=== PATIENT | male | born 1940 | race Caucasian/White ===

== ENCOUNTER 2018-03-07 13:07 | Outpatient (CLI) | payer MEDICARE, BC ==
--- NOTE | 2018-03-07 14:38 | MRI ---
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 The patient is having pain in the neck for 3 months with l eft foot tingling and numbness. TECHNIQUE: Multiplanar, multisequence MR images were obtained of the cervical spine without contrast. FINDINGS: Bone marrow signal intensity appears within normal limits. The visualized posterior fossa is unremark able. There is some mucosal thickening within the inferior aspect of the right maxillary sinus. At C2-C3, there is no appreciable central canal or neural foraminal narrowing. At C3-4, there is uncovertebral hypertrophy and facet joint degenerative change inducing moderate rig ht and mild left neural foraminal narrowing. There is a mild broad based disc bulge at this level. At C4-5, there is a broad based disc bulge with uncovertebral hypertrophy. This is greater on the lef t inducing moderate left neural foraminal narrowing. At C5-6, there is a right foraminal disc protrusion causing moderate right neural foraminal narrowing . There is uncovertebral hypertrophy and facet degenerative change inducing mild left neural foramina l narrowing. At C6-7, there is uncovertebral hypertrophy without appreciable central canal or neural foraminal rosie rowing. At C7-T1, there is no appreciable central canal or neural foraminal narrowing. IMPRESSION: Mild to moderate multilevel spondylosis of the cervical spine with multilevel neural foraminal narrow ing as dictated above. POS: SHAILA
--- NOTE | 2018-03-07 15:14 | MRI ---
NONCONTRAST ENHANCED MRI IMAGES OF THE LUMBAR SPINE: History: Back pain, tingling, numbness. Technique: Multiplanar, multisequence noncontrast enhanced MRI images of the lumbar spine obtained. M 51.36 FINDINGS: For the purposes of this dictation, the last freely mobile vertebral body will be considered to be th e L5 vertebral body. All other vertebral bodies are numbered according to this. T12-L1, L1-2: Unremarkable. L2-3: There is some mild disc desiccation. Mild facet hypertrophy is seen. The central canal and neur al foramen are patent. L3-4: Disc desiccation is seen. There is a broad based disc bulge with bilateral facet hypertrophy. T his results in minimal central and lateral recess stenosis. There is moderate left and mild right thania ed neural foraminal narrowing seen. L4-5: Disc desiccation is seen. There is a broad based disc bulge with minimal facet hypertrophy. Libra tral canal is patent. The neural foramen demonstrate moderate to severe right and mild left sided magali ral foraminal narrowing. There is some irregularity involving the superior endplate of the L5 vertebr al body. L5-S1: The central canal is patent. The disc at this level is desiccated. There is mild bilateral magali ral foraminal narrowing seen due to the facet hypertrophy. IMPRESSION: 1. There is moderate to severe right L4-5 neural foraminal narrowing. Moderate bilateral L3-4 neural foraminal narrowing also seen. POS: SHAILA
== END 2018-03-07 13:08 | disposition home or self-care (01) ==
LOC: TBSIIMAG 13:07
PROVIDERS: ATTEND Neurological Surgery
DX: M51.36 Other intervertebral disc degeneration, lumbar region (principal); M47.892 Other spondylosis, cervical region; M99.83 Other biomechanical lesions of lumbar region; M99.81 Other biomechanical lesions of cervical region; M50.222 Other cervical disc displacement at C5-C6 level
CPT/HCPCS: 72141; 72148